=== PATIENT | female | born 1945 | race Caucasian/White ===

== ENCOUNTER 2018-12-01 13:50 | Emergency (ER) | payer MEDICARE, OTHER, SELFPAY ==
[2018-12-01 13:57] VITALS: BP 120/74; PULSE 70; RESP 16; TEMP 36.3; O2SAT 96
--- NOTE | 2018-12-01 15:15 | DI.CT.S_ITS ---
PROCEDURE: CT HEAD/BRAIN WO CON INDICATIONS: dizzy,headache. 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 TECHNIQUE: Noncontrast 4.5 mm thick angled axial sections acquired from the foramen magnum to the vertex, with coronal and sagittal reformats. For radiation dose reduction, the following was used: automated exposure control, adjustment of mA and/or kV according to patient size. COMPARISON: [facility], CT, CT ANGIO BRAIN AND NECK, 01/20/2016, 10:38. [facility], CT, CT ANGIO BRAIN, 04/26/2016, 12:41. FINDINGS: Image quality: Excellent. 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 This results in significant artifact. The visualized brain parenchyma is unremarkable. No acute stroke, hemorrhage, or mass. Sinuses and mastoids are clear. IMPRESSION: 1. Remote AV fistula endovascular embolization. 2. Negative for acute stroke, hemorrhage, or mass. Dictated by: Cuauhtemoc Denson M.D. on 12/01/2018 at 15:32 Approved by: Cuauhtemoc Denson M.D. on 12/01/2018 at 15:37
--- NOTE | 2018-12-01 15:15 | DI.RAD.S_ITS ---
PROCEDURE: XR CHEST 1V INDICATIONS: dizzy,headache TECHNIQUE: One view of the chest was acquired. COMPARISON: None. FINDINGS: Surgical changes and devices: None. Lungs and pleura: Lungs are clear. No pleural effusions or pneumothorax. Mediastinum: Mediastinal contours appear normal. Heart size is normal. Bones and chest wall: No suspicious bony lesions. Overlying soft tissues appear unremarkable. IMPRESSION: No acute process. Dictated by: Hannah Hernandez M.D. on 12/01/2018 at 15:37 Approved by: Hannah Hernandez M.D. on 12/01/2018 at 15:37
[2018-12-01 15:46] VITALS: BP 119/73; PULSE 68; RESP 24; O2SAT 99
[2018-12-01 16:14] LABS: Add Manual Diff / Slide Review NO; Basophils Absolute Auto 100 /uL (0-100); Basophils Percent Auto 1.5 % (0-2); Eosinophils Absolute Auto 200 /uL (0-450); Hematocrit 41.5 % (36-46); Hemoglobin 13.8 g/dL (12.0-16.0); Lymphocytes Absolute Auto 2500 /uL (1100-4500); Lymphocytes Percent Auto 31.4 % (25-40); Mean Corpuscular HGB Conc 33.2 % (30-36); Mean Corpuscular Hemoglobin 28.4 PG (26-34); Mean Corpuscular Volume 85.5 fL (80-100); Monocytes Absolute Auto 600 /uL (0-900); Monocytes Percent Auto 7.1 % (3-14); Neutrophils Absolute Auto 4600 /uL (1500-7000); Platelet Count 339 X10^3/uL (150-400); Red Blood Cell Count 4.86 X10^6/uL (4.0-5.2); White Blood Cell Count 7.9 X10^3/uL (4.5-11.0)
[2018-12-01] MEDS: SODIUM CHLORIDE 0.9% 1,000 ML 150 ML IV (16:18)
[2018-12-01 16:21] LABS: Prothrombin Time 11.1 SECONDS (10.1-12.7)
[2018-12-01 16:24] LABS: PTT Partial Thromboplastin Tim 33 SECONDS (26.4-36.2)
[2018-12-01 16:26] LABS: BUN Creatinine Ratio 27.1 (6-22); Blood Urea Nitrogen 19 mg/dL (7-17); Calcium 10.4 mg/dL (8.4-10.2); Carbon Dioxide 25 mmol/L (22-32); Chloride 101 mmol/L (98-107); Estimated Glomerular Filt Rate > 60.0 mL/min (>60); Glucose 90 mg/dL (80-110); HEMOLYSIS < 15 (0-50); Potassium 4.2 mmol/L (3.4-5.1); Sodium 136 mmol/L (137-145)
[2018-12-01 16:30] VITALS: BP 117/71; PULSE 68; RESP 16; O2SAT 98
--- NOTE | 2018-12-01 16:38 | ED.DIZZY ---
HPI - Dizziness <CHRISTIANO Bates - Last Filed: 12/01/18 21:24> General Chief Complaint: Dizziness Stated Complaint: dizziness, headache Time Seen by Provider: 12/01/18 16:36 Source: patient and family Mode of arrival: ambulatory Limitations: no limitations History of Present Illness HPI Narrative: The patient is a 73-year-old female nonsmoker with history of a remote AV fistula and endovascular embolization who presents with a chief complaint of 10 minutes of dizziness this morning. She states she was cooking breakfast, felt dizzy so she laid down and then felt better so she finished cooking breakfast. She denies any chest pain shortness of breath, confusion, altered mental status or current dizziness. Denies any weakness or slurred speech. Her is with her and states she is acting normal. she does complain of slight headache and has not taken anything for it. She was sent to this emergency department from urgent care. Related Data Home Medications Medication Instructions Recorded Confirmed Biotics See Rx Instructions .ROUTE .COMPLEX 12/01/18 12/01/18 clobetasol 1 applic TOPICAL DIRECTED 12/01/18 12/01/18 Allergies Allergy/AdvReac Type Severity Reaction Status Date / Time Sulfa (Sulfonamide Allergy Severe itching Verified 12/01/18 14:04 Antibiotics) Review of Systems <CHRISTIANO Bates - Last Filed: 12/01/18 21:24> Review of Systems GENERAL: Denies chills, fatigue, malaise, fever, sweats. HEENT: Denies sinus pain, ear pain, sore throat, difficulty swallowing, dizziness. RESPIRATORY: Denies dyspnea, cough, wheezing, hemoptysis, sputum. CARDIOVASCULAR: See HPI GASTROINTESTINAL: Denies nausea, vomiting, abdominal pain, diarrhea, constipation, melena. : Denies dysuria, frequency, incontinence, hematuria, urinary retention. MUSCULOSKELETAL: denies weakness, joint pain, or bony pain SKIN: Denies rash, skin lesions, or other NEUROLOGIC: See HPI PSYCHIATRIC: No concerning psychosocial issues. 12 point review of systems is negative except for those stated above PFSH <CHRISTIANO Bates - Last Filed: 12/01/18 21:24> Social History Smoking Status: Never smoker Social History Smoking Status: Never smoker Exam <MAKENZIE BatesBC - Last Filed: 12/01/18 21:24> Narrative Exam Narrative: GENERAL: Elderly female lying on stretcher HEAD: Atraumatic. Normocephalic. No temporal or scalp tenderness. EYES: Pupils equal round and reactive. Extraocular motions intact. No scleral icterus. No injection or drainage. no nystagmus. ENT: Nose without bleeding, purulent drainage or septal hematoma. Throat without erythema, tonsillar hypertrophy or exudate. Uvula midline. Airway patent. NECK: Trachea midline. No JVD or lymphadenopathy. Supple, nontender, no meningeal signs. CARDIOVASCULAR: Regular rate and rhythm without murmurs, gallops, or rubs. RESPIRATORY: Clear to auscultation. Breath sounds equal bilaterally. No wheezes, rales, or rhonchi. No cough. No increased respiratory effort. No accessory muscle use. GASTROINTESTINAL: Abdomen soft, non-tender, nondistended. No hepato-splenomegaly, or palpable masses. No guarding. EXTREMITIES: No clubbing, cyanosis, or edema. No joint tenderness, effusion, or edema noted. BACK: Nontender without deformity or crepitance. No flank tenderness. NEURO: AOx3. Stable gait. Strength is equal upper and lower extremities bilaterally. cranial nerves grossly intact. SKIN: No rash or erythema. Initial Vital Signs Initial Vital Signs: Vital Signs Temperature 97.4 F L 12/01/18 13:57 Pulse Rate 70 12/01/18 13:57 Respiratory Rate 16 12/01/18 13:57 Blood Pressure 120/74 12/01/18 13:57 Pulse Oximetry 96 12/01/18 13:57 <Alexandra More DO - Last Filed: 12/02/18 19:40> Initial Vital Signs Initial Vital Signs: Vital Signs Temperature 97.4 F L 12/01/18 13:57 Pulse Rate 70 12/01/18 13:57 Respiratory Rate 16 12/01/18 13:57 Blood Pressure 120/74 12/01/18 13:57 Pulse Oximetry 96 12/01/18 13:57 Scores <MAKENZIE BatesBC - Last Filed: 12/01/18 21:24> ABCD2 Age >= 60 years: yes Initial BP. Either SBP >= 140 or DBP >= 90.: no Clinical features of the TIA: other symptoms Duration of symptoms: 10-59 minutes History of diabetes: no ABCD2 Score: 2 Course <CHRISTIANO Bates - Last Filed: 12/01/18 21:24> Orders Ordered: Discontinued Medications Sodium Chloride (Normal Saline 0.9%) 1,000 mls @ 150 mls/hr IV CONT ALEXANDRA Last Infusion: 12/01/18 19:55 Dose: 0 mls/hr Admin: 12/01/18 16:18 Dose: 150 mls/hr Vital Signs - 8 hr 12/01/18 13:57 12/01/18 15:46 12/01/18 16:30 Temperature 97.4 F L Pulse Rate 70 68 68 Respiratory Rate 16 24 16 Blood Pressure 120/74 Blood Pressure [Left Arm] 119/73 117/71 Pulse Oximetry 96 99 98 12/01/18 17:30 12/01/18 19:30 12/01/18 19:56 Temperature Pulse Rate 60 69 70 Respiratory Rate 17 23 21 Blood Pressure 107/61 Blood Pressure [Left Arm] 108/65 108/66 Pulse Oximetry 96 97 99 <Alexandra More DO - Last Filed: 12/02/18 19:40> Orders Ordered: Discontinued Medications Sodium Chloride (Normal Saline 0.9%) 1,000 mls @ 150 mls/hr IV CONT ALEXANDRA Last Infusion: 12/01/18 19:55 Dose: 0 mls/hr Admin: 12/01/18 16:18 Dose: 150 mls/hr Vital Signs - 8 hr 12/01/18 13:57 12/01/18 15:46 12/01/18 16:30 Temperature 97.4 F L Pulse Rate 70 68 68 Respiratory Rate 16 24 16 Blood Pressure 120/74 Blood Pressure [Left Arm] 119/73 117/71 Pulse Oximetry 96 99 98 12/01/18 17:30 12/01/18 19:30 12/01/18 19:56 Temperature Pulse Rate 60 69 70 Respiratory Rate 17 23 21 Blood Pressure 107/61 Blood Pressure [Left Arm] 108/65 108/66 Pulse Oximetry 96 97 99 MDM - Dizziness <CHRISTIANO Bates - Last Filed: 12/01/18 21:24> Lab Data Result diagrams: 12/01/18 16:01 12/01/18 16:01 Lab Results 12/01/18 12/01/18 12/01/18 Range/Units 16:01 16:01 16:01 WBC 7.9 (4.5-11.0) X10^3/uL RBC 4.86 (4.0-5.2) X10^6/uL Hgb 13.8 (12.0-16.0) g/dL Hct 41.5 (36-46) % MCV 85.5 (80-100) fL MCH 28.4 (26-34) PG MCHC 33.2 (30-36) % RDW 13.0 (11.6-14.8) % Plt Count 339 (150-400) X10^3/uL Neut % (Auto) 58.0 (50-75) % Lymph % (Auto) 31.4 (25-40) % [place] % (Auto) 7.1 (3-14) % Eos % (Auto) 2.0 (2-4) % Baso % (Auto) 1.5 (0-2) % Neut # (Auto) 4600 (4041-0992) /uL Lymph # (Auto) 2500 (4591-7439) /uL [place] # (Auto) 600 (0-900) /uL Eos # (Auto) 200 (0-450) /uL Baso # (Auto) 100 (0-100) /uL PT 11.1 (10.1-12.7) SECONDS INR 1.0 (0.9-1.3) APTT 33 (26.4-36.2) SECONDS Sodium 136 L (137-145) mmol/L Potassium 4.2 (3.4-5.1) mmol/L Chloride 101 (98-107) mmol/L Carbon Dioxide 25 (22-32) mmol/L BUN 19 H (7-17) mg/dL Creatinine 0.70 (0.52-1.04) mg/dL Estimated GFR > 60.0 (>60) mL/min BUN/Creatinine Ratio 27.1 H (6-22) Glucose 90 (80-110) mg/dL Calcium 10.4 H (8.4-10.2) mg/dL Total Creatine Kinase (30-135) U/L CK-MB (CK-2) CK-MB (CK-2) Rel Index Troponin I (0.01-0.034) ng/mL 12/01/18 Range/Units 16:01 WBC (4.5-11.0) X10^3/uL RBC (4.0-5.2) X10^6/uL Hgb (12.0-16.0) g/dL Hct (36-46) % MCV (80-100) fL MCH (26-34) PG MCHC (30-36) % RDW (11.6-14.8) % Plt Count (150-400) X10^3/uL Neut % (Auto) (50-75) % Lymph % (Auto) (25-40) % [place] % (Auto) (3-14) % Eos % (Auto) (2-4) % Baso % (Auto) (0-2) % Neut # (Auto) (2135-1518) /uL Lymph # (Auto) (4310-0216) /uL [place] # (Auto) (0-900) /uL Eos # (Auto) (0-450) /uL Baso # (Auto) (0-100) /uL PT (10.1-12.7) SECONDS INR (0.9-1.3) APTT (26.4-36.2) SECONDS Sodium (137-145) mmol/L Potassium (3.4-5.1) mmol/L Chloride (98-107) mmol/L Carbon Dioxide (22-32) mmol/L BUN (7-17) mg/dL Creatinine (0.52-1.04) mg/dL Estimated GFR (>60) mL/min BUN/Creatinine Ratio (6-22) Glucose (80-110) mg/dL Calcium (8.4-10.2) mg/dL Total Creatine Kinase 37 (30-135) U/L CK-MB (CK-2) TNP CK-MB (CK-2) Rel Index TNP Troponin I < 0.012 (0.01-0.034) ng/mL Point of Care Testing Glucose POC 88 Urine Dip Bedside Urine Glucose Negative Bedside Urine Bilirubin - Negative Bedside Urine Ketone - Negative Urine Specific [place] 1.015 Bedside Urine Occult Blood - Negative Bedside Urine pH 6.0 Bedside Urine Protein - Negative Bedside Urine Urobilinogen - Negative Bedside Urine Nitrite - Negative Bedside Urine Leukocytes - Negative Esterase Imaging Data CT scan - head: Radiologist's impression: [place],Jennie 73 F [address] [address] [address] Scan Report Signed Patient: Marybel Gallardo#: [id number] : 5Acct:[id number] Age/Sex: 73 / FDate of Service: 12/01/18 Loc: ED Accession Number: [id number] Procedure: CT head/brain wo con Ordering Provider: Alexandra More D.O. PROCEDURE: CT HEAD/BRAIN WO CON INDICATIONS: dizzy,headache. 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 TECHNIQUE: Noncontrast 4.5 mm thick angled axial sections acquired from the foramen magnum to the vertex, with coronal and sagittal reformats. For radiation dose reduction, the following was used: automated exposure control, adjustment of mA and/or kV according to patient size. COMPARISON: [facility], CT, CT ANGIO BRAIN AND NECK, 01/20/2016, 10:38. [facility], CT, CT ANGIO BRAIN, 04/26/2016, 12:41. FINDINGS: Image quality: Excellent. 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 This results in significant artifact. The visualized brain parenchyma is unremarkable. No acute stroke, hemorrhage, or mass. Sinuses and mastoids are clear. IMPRESSION: 1. Remote AV fistula endovascular embolization. 2. Negative for acute stroke, hemorrhage, or mass. Dictated by: Cuauhtemoc Denson M.D. on 12/01/2018 at 15:32 Approved by: Cuauhtemoc Denson M.D. on 12/01/2018 at 15:37 Chest x-ray: Radiologist's impression: Jennie Gallardo 73 F [address] [address] XRay Report Signed Patient: Marybel Gallardo#: [id number] : 5Acct:[id number] Age/Sex: 73 / FDate of Service: 12/01/18 Loc: ED Accession Number: [id number] Procedure: XR chest 1V Ordering Provider: Alexandra More D.O. PROCEDURE: XR CHEST 1V INDICATIONS: dizzy,headache TECHNIQUE: One view of the chest was acquired. COMPARISON: None. FINDINGS: Surgical changes and devices: None. Lungs and pleura: Lungs are clear. No pleural effusions or pneumothorax. Mediastinum: Mediastinal contours appear normal. Heart size is normal. Bones and chest wall: No suspicious bony lesions. Overlying soft tissues appear unremarkable. IMPRESSION: No acute process. Dictated by: Hannah Hernandez M.D. on 12/01/2018 at 15:37 Approved by: Hannah Hernandez M.D. on 12/01/2018 at 15:37 CTA head/neck: Radiologist's impression: [place] [address] CT Scan Report Signed Patient: Marybel Gallardo#: [id number] : 5Acct:[id number] Age/Sex: 73 / FDate of Service: 12/01/18 Loc: ED Accession Number: [id number] Procedure: CT angio head and neck Ordering Provider: Alexandra Beck BATTING MACHINE OPERATOR INSULATION-BC PROCEDURE: CT ANGIO HEAD AND NECK INDICATIONS: dizziness, hx av fistula embolization TECHNIQUE: Pre-contrast 4.5 mm thick sections acquired from the foramen magnum to the vertex. After the administration of intravenous contrast, 1 mm thick sections acquired from the aortic arch through the [place] of [place]. Post-contrast 4.5 mm thick sections then re-acquired from the foramen magnum to the vertex. 3-dimensional vivrpfq-gvkotezya-fygpupuvdk (MIP) and/or volume rendering reformats were acquired of the central intracranial vasculature and neck separately. COMPARISON: [facility], CT, CT HEAD/BRAIN WO CON, 12/01/2018, 15:17. FINDINGS: Image quality: Excellent. BRAIN: CSF spaces: Ventricles are normal in size and shape. Basal cisterns are patent. No extra-axial fluid collections. Brain: No midline shift. No intracranial bleeds or masses. Evans-white matter interface appears intact. Again noted is intravascular material in the right cerebellar region from remote AV fistula embolization. No acute stroke. Skull and face: Calvarium and facial bones appear intact, without suspicious lesions. Orbits appear normal. Sinuses: Sinuses and mastoids are clear. HEAD CT ANGIOGRAPHY: No stenosis, aneurysm, occlusion, or filling defect. NECK CT ANGIOGRAPHY: Classic 3 vessel arch anatomy. Mild atherosclerotic plaque in the aorta and in the left subclavian. No great vessel origin stenosis. Internal carotids are widely patent. Soft tissues: Visualized neck soft tissues demonstrate no suspicious abnormalities. Bones: No suspicious bony lesions. Visualized cervical spine appears normally aligned. IMPRESSION: 1. Evidence of remote right cerebellar region fistula embolization. 2. Otherwise unremarkable CTA head and neck. 3. No evidence of acute stroke, hemorrhage, or mass. 4. Otherwise unremarkable neck CT with contrast Any quantitative measurements of stenosis were performed using NASCET criteria. Dictated by: Cuauhtemoc Denson M.D. on 12/01/2018 at 18:40 Approved by: Cuauhtemoc Denson M.D. on 12/01/2018 at 18:49 ECG Data Interpretation: Sinus rhythm. Ventricular rate 63. No ectopy noted. no ST elevation or depression. viewed by Dr More at 1409 MDM Narrative Medical decision making narrative: The patient is a 73-year-old female who presents with transient dizziness earlier today. She had a normal troponin, is not anemic at a normal x-ray. She had a normal head CT and a normal chest x-ray. Given her history I did obtain a CTA, which came back normal. her ABCD2 score is low risk. I did discuss admitting her for further evaluation but the patient declined at this point time. She has been hemodynamically stable without symptoms throughout her stay in the emergency department. I did discuss at length return precautions including shortness of breath, chest pain, concern of stroke or heart attack. Patient and again declined admission. No questions or concerns upon discharge <Alexandra More, - Last Filed: 12/02/18 19:40> Lab Data Lab Results 12/01/18 12/01/18 12/01/18 Range/Units 16:01 16:01 16:01 WBC 7.9 (4.5-11.0) X10^3/uL RBC 4.86 (4.0-5.2) X10^6/uL Hgb 13.8 (12.0-16.0) g/dL Hct 41.5 (36-46) % MCV 85.5 (80-100) fL MCH 28.4 (26-34) PG MCHC 33.2 (30-36) % RDW 13.0 (11.6-14.8) % Plt Count 339 (150-400) X10^3/uL Neut % (Auto) 58.0 (50-75) % Lymph % (Auto) 31.4 (25-40) % [place] % (Auto) 7.1 (3-14) % Eos % (Auto) 2.0 (2-4) % Baso % (Auto) 1.5 (0-2) % Neut # (Auto) 4600 (0824-2737) /uL Lymph # (Auto) 2500 (2006-7835) /uL [place] # (Auto) 600 (0-900) /uL Eos # (Auto) 200 (0-450) /uL Baso # (Auto) 100 (0-100) /uL PT 11.1 (10.1-12.7) SECONDS INR 1.0 (0.9-1.3) APTT 33 (26.4-36.2) SECONDS Sodium 136 L (137-145) mmol/L Potassium 4.2 (3.4-5.1) mmol/L Chloride 101 (98-107) mmol/L Carbon Dioxide 25 (22-32) mmol/L BUN 19 H (7-17) mg/dL Creatinine 0.70 (0.52-1.04) mg/dL Estimated GFR > 60.0 (>60) mL/min BUN/Creatinine Ratio 27.1 H (6-22) Glucose 90 (80-110) mg/dL Calcium 10.4 H (8.4-10.2) mg/dL Total Creatine Kinase (30-135) U/L CK-MB (CK-2) CK-MB (CK-2) Rel Index Troponin I (0.01-0.034) ng/mL 12/01/18 Range/Units 16:01 WBC (4.5-11.0) X10^3/uL RBC (4.0-5.2) X10^6/uL Hgb (12.0-16.0) g/dL Hct (36-46) % MCV (80-100) fL MCH (26-34) PG MCHC (30-36) % RDW (11.6-14.8) % Plt Count (150-400) X10^3/uL Neut % (Auto) (50-75) % Lymph % (Auto) (25-40) % [place] % (Auto) (3-14) % Eos % (Auto) (2-4) % Baso % (Auto) (0-2) % Neut # (Auto) (3311-9162) /uL Lymph # (Auto) (4744-3009) /uL [place] # (Auto) (0-900) /uL Eos # (Auto) (0-450) /uL Baso # (Auto) (0-100) /uL PT (10.1-12.7) SECONDS INR (0.9-1.3) APTT (26.4-36.2) SECONDS Sodium (137-145) mmol/L Potassium (3.4-5.1) mmol/L Chloride (98-107) mmol/L Carbon Dioxide (22-32) mmol/L BUN (7-17) mg/dL Creatinine (0.52-1.04) mg/dL Estimated GFR (>60) mL/min BUN/Creatinine Ratio (6-22) Glucose (80-110) mg/dL Calcium (8.4-10.2) mg/dL Total Creatine Kinase 37 (30-135) U/L CK-MB (CK-2) TNP CK-MB (CK-2) Rel Index TNP Troponin I < 0.012 (0.01-0.034) ng/mL Point of Care Testing Glucose POC 88 Urine Dip Bedside Urine Glucose Negative Bedside Urine Bilirubin - Negative Bedside Urine Ketone - Negative Urine Specific [place] 1.015 Bedside Urine Occult Blood - Negative Bedside Urine pH 6.0 Bedside Urine Protein - Negative Bedside Urine Urobilinogen - Negative Bedside Urine Nitrite - Negative Bedside Urine Leukocytes - Negative Esterase Discharge Plan Departure Patient Disposition: Home Clinical Impression: Dizziness Discharge Date/Time: 12/01/18 19:55 Interventions: ED Discharge Assessment Last Done: 12/01/18 19:56 Instructions: DI for Dizziness-Nonvertigo Activity Restrictions/Additional Instructions: Your workup came back normal today. Please follow up with primary care provider soon as possible. Please come back to emergency department for any acute concerns such as chest pain, shortness of breath or concern of stroke or TIA. Prescriptions: No Action clobetasol 1 applic topical DIRECTED RF: 0 Biotics See Rx Instructions .ROUTE .COMPLEX RF: 0 Referrals: Lyssa Bejarano DO [Non-Staff] - <Alexandra More DO - Last Filed: 12/02/18 19:40> Cosign ED Attending Cosignature Attestation: I was immediately available in the department for consultation, case was discussed with patient's history of remove fistula embolization, elected to do CTA which was otherwise unremarkable. This documentation has been reviewed and I agree with assessment and plan. Supervised by Alexandra More DO
[2018-12-01 17:17] LABS: Creatine Kinase 37 U/L (30-135)
[2018-12-01 17:30] VITALS: BP 108/65; PULSE 60; RESP 17; O2SAT 96
[2018-12-01 17:30] LABS: Troponin I < 0.012 ng/mL (0.01-0.034)
--- NOTE | 2018-12-01 17:59 | DI.CT.S_ITS ---
PROCEDURE: CT ANGIO HEAD AND NECK INDICATIONS: dizziness, hx av fistula embolization TECHNIQUE: Pre-contrast 4.5 mm thick sections acquired from the foramen magnum to the vertex. After the administration of intravenous contrast, 1 mm thick sections acquired from the aortic arch through the [place] of [place]. Post-contrast 4.5 mm thick sections then re-acquired from the foramen magnum to the vertex. 3-dimensional zzhnspa-bdjlhnwba-rdxyxxreiw (MIP) and/or volume rendering reformats were acquired of the central intracranial vasculature and neck separately. COMPARISON: [facility], CT, CT HEAD/BRAIN WO CON, 12/01/2018, 15:17. FINDINGS: Image quality: Excellent. BRAIN: CSF spaces: Ventricles are normal in size and shape. Basal cisterns are patent. No extra-axial fluid collections. Brain: No midline shift. No intracranial bleeds or masses. Evans-white matter interface appears intact. Again noted is intravascular material in the right cerebellar region from remote AV fistula embolization. No acute stroke. Skull and face: Calvarium and facial bones appear intact, without suspicious lesions. Orbits appear normal. Sinuses: Sinuses and mastoids are clear. HEAD CT ANGIOGRAPHY: No stenosis, aneurysm, occlusion, or filling defect. NECK CT ANGIOGRAPHY: Classic 3 vessel arch anatomy. Mild atherosclerotic plaque in the aorta and in the left subclavian. No great vessel origin stenosis. Internal carotids are widely patent. Soft tissues: Visualized neck soft tissues demonstrate no suspicious abnormalities. Bones: No suspicious bony lesions. Visualized cervical spine appears normally aligned. IMPRESSION: 1. Evidence of remote right cerebellar region fistula embolization. 2. Otherwise unremarkable CTA head and neck. 3. No evidence of acute stroke, hemorrhage, or mass. 4. Otherwise unremarkable neck CT with contrast Any quantitative measurements of stenosis were performed using NASCET criteria. Dictated by: Cuauhtemoc Denson M.D. on 12/01/2018 at 18:40 Approved by: Cuauhtemoc Denson M.D. on 12/01/2018 at 18:49
[2018-12-01 19:30] VITALS: BP 108/66; PULSE 69; RESP 23; O2SAT 97
--- NOTE | 2018-12-01 19:35 | ED_ITS ---
HPI - Dizziness <CHRISTIANO Bates - Last Filed: 12/01/18 21:24> General Chief Complaint: Dizziness Stated Complaint: dizziness, headache Time Seen by Provider: 12/01/18 16:36 Source: patient and family Mode of arrival: ambulatory Limitations: no limitations History of Present Illness HPI Narrative: The patient is a 73-year-old female nonsmoker with history of a remote AV fistula and endovascular embolization who presents with a chief complaint of 10 minutes of dizziness this morning. She states she was cooking breakfast, felt dizzy so she laid down and then felt better so she finished cooking breakfast. She denies any chest pain shortness of breath, confusion, altered mental status or current dizziness. Denies any weakness or slurred speech. Her is with her and states she is acting normal. she does complain of slight headache and has not taken anything for it. She was sent to this emergency department from urgent care. Related Data Home Medications Medication Instructions Recorded Confirmed Biotics See Rx Instructions .ROUTE .COMPLEX 12/01/18 12/01/18 clobetasol 1 applic TOPICAL DIRECTED 12/01/18 12/01/18 Allergies Allergy/AdvReac Type Severity Reaction Status Date / Time Sulfa (Sulfonamide Allergy Severe itching Verified 12/01/18 14:04 Antibiotics) Review of Systems <CHRISTIANO Bates - Last Filed: 12/01/18 21:24> Review of Systems GENERAL: Denies chills, fatigue, malaise, fever, sweats. HEENT: Denies sinus pain, ear pain, sore throat, difficulty swallowing, dizziness. RESPIRATORY: Denies dyspnea, cough, wheezing, hemoptysis, sputum. CARDIOVASCULAR: See HPI GASTROINTESTINAL: Denies nausea, vomiting, abdominal pain, diarrhea, const ipation, melena. : Denies dysuria, frequency, incontinence, hematuria, urinary retention. MUSCULOSKELETAL: denies weakness, joint pain, or bony pain SKIN: Denies rash, skin lesions, or other NEUROLOGIC: See HPI PSYCHIATRIC: No concerning psychosocial issues. 12 point review of systems is negative except for those stated above PFSH <CHRISTIANO Bates - Last Filed: 12/01/18 21:24> Social History Smoking Status: Never smoker Social History Smoking Status: Never smoker Exam <CHRISTIANO Baets - Last Filed: 12/01/18 21:24> Narrative Exam Narrative: GENERAL: Elderly female lying on stretcher HEAD: Atraumatic. Normocephalic. No temporal or scalp tenderness. EYES: Pupils equal round and reactive. Extraocular motions intact. No scleral icterus. No injection or drainage. no nystagmus. ENT: Nose without bleeding, purulent drainage or septal hematoma. Throat without erythema, tonsillar hypertrophy or exudate. Uvula midline. Airway patent. NECK: Trachea midline. No JVD or lymphadenopathy. Supple, nontender, no mening eal signs. CARDIOVASCULAR: Regular rate and rhythm without murmurs, gallops, or rubs. RESPIRATORY: Clear to auscultation. Breath sounds equal bilaterally. No wheezes, rales, or rhonchi. No cough. No increased respiratory effort. No accessory muscle use. GASTROINTESTINAL: Abdomen soft, non-tender, nondistended. No hepato- splenomegaly, or palpable masses. No guarding. EXTREMITIES: No clubbing, cyanosis, or edema. No joint tenderness, effusion, or edema noted. BACK: Nontender without deformity or crepitance. No flank tenderness. NEURO: AOx3. Stable gait. Strength is equal upper and lower extremities bilaterally. cranial nerves grossly intact. SKIN: No rash or erythema. Initial Vital Signs Initial Vital Signs: Vital Signs Temperature 97.4 F L 12/01/18 13:57 Pulse Rate 70 12/01/18 13:57 Respiratory Rate 16 12/01/18 13:57 Blood Pressure 120/74 12/01/18 13:57 Pulse Oximetry 96 12/01/18 13:57 <Alexandra More DO - Last Filed: 12/02/18 19:40> Initial Vital Signs Initial Vital Signs: Vital Signs Temperature 97.4 F L 12/01/18 13:57 Pulse Rate 70 12/01/18 13:57 Respiratory Rate 16 12/01/18 13:57 Blood Pressure 120/74 12/01/18 13:57 Pulse Oximetry 96 12/01/18 13:57 Scores <CHRISTIANO Bates - Last Filed: 12/01/18 21:24> ABCD2 Age >= 60 years: yes Initial BP. Either SBP >= 140 or DBP >= 90.: no Clinical features of the TIA: other symptoms Duration of symptoms: 10-59 minutes History of diabetes: no ABCD2 Score: 2 Course <CHRISTIANO Bates - Last Filed: 12/01/18 21:24> Orders Ordered: Discontinued Medications Sodium Chloride (Normal Saline 0.9%) 1,000 mls @ 150 mls/hr IV CONT ALEXANDRA Last Infusion: 12/01/18 19:55 Dose: 0 mls/hr Admin: 12/01/18 16:18 Dose: 150 mls/hr Vital Signs - 8 hr 12/01/18 13:57 12/01/18 15:46 12/01/18 16:30 Temperature 97.4 F L Pulse Rate 70 68 68 Respiratory Rate 16 24 16 Blood Pressure 120/74 Blood Pressure [Left Arm] 119/73 117/71 Pulse Oximetry 96 99 98 12/01/18 17:30 12/01/18 19:30 12/01/18 19:56 Temperature Pulse Rate 60 69 70 Respiratory Rate 17 23 21 Blood Pressure 107/61 Blood Pressure [Left Arm] 108/65 108/66 Pulse Oximetry 96 97 99 <Alexandra More DO - Last Filed: 12/02/18 19:40> Orders Ordered: Discontinued Medications Sodium Chloride (Normal Saline 0.9%) 1,000 mls @ 150 mls/hr IV CONT ALEXANDRA Last Infusion: 12/01/18 19:55 Dose: 0 mls/hr Admin: 12/01/18 16:18 Dose: 150 mls/hr Vital Signs - 8 hr 12/01/18 13:57 12/01/18 15:46 12/01/18 16:30 Temperature 97.4 F L Pulse Rate 70 68 68 Respiratory Rate 16 24 16 Blood Pressure 120/74 Blood Pressure [Left Arm] 119/73 117/71 Pulse Oximetry 96 99 98 12/01/18 17:30 12/01/18 19:30 12/01/18 19:56 Temperature Pulse Rate 60 69 70 Respiratory Rate 17 23 21 Blood Pressure 107/61 Blood Pressure [Left Arm] 108/65 108/66 Pulse Oximetry 96 97 99 MDM - Dizziness <CHRISTIANO Bates - Last Filed: 12/01/18 21:24> Lab Data Result diagrams: 12/01/18 16:01 12/01/18 16:01 Lab Results 12/01/18 12/01/18 12/01/18 Range/Units 16:01 16:01 16:01 WBC 7.9 (4.5-11.0) X10^3/uL RBC 4.86 (4.0-5.2) X10^6/uL Hgb 13.8 (12.0-16.0) g/dL Hct 41.5 (36-46) % MCV 85.5 (80-100) fL MCH 28.4 (26-34) PG MCHC 33.2 (30-36) % RDW 13.0 (11.6-14.8) % Plt Count 339 (150-400) X10^3/uL Neut % (Auto) 58.0 (50-75) % Lymph % (Auto) 31.4 (25-40) % [place] % (Auto) 7.1 (3-14) % Eos % (Auto) 2.0 (2-4) % Baso % (Auto) 1.5 (0-2) % Neut # (Auto) 4600 (3232-4702) /uL Lymph # (Auto) 2500 (5538-6307) /uL [place] # (Auto) 600 (0-900) /uL Eos # (Auto) 200 (0-450) /uL Baso # (Auto) 100 (0-100) /uL PT 11.1 (10.1-12.7) SECONDS INR 1.0 (0.9-1.3) APTT 33 (26.4-36.2) SECONDS Sodium 136 L (137-145) mmol/L Potassium 4.2 (3.4-5.1) mmol/L Chloride 101 (98-107) mmol/L Carbon Dioxide 25 (22-32) mmol/L BUN 19 H (7-17) mg/dL Creatinine 0.70 (0.52-1.04) mg/dL Estimated GFR > 60.0 (>60) mL/min BUN/Creatinine Ratio 27.1 H (6-22) Glucose 90 (80-110) mg/dL Calcium 10.4 H (8.4-10.2) mg/dL Total Creatine Kinase (30-135) U/L CK-MB (CK-2) CK-MB (CK-2) Rel Index Troponin I (0.01-0.034) ng/mL 12/01/18 Range/Units 16:01 WBC (4.5-11.0) X10^3/uL RBC (4.0-5.2) X10^6/uL Hgb (12.0-16.0) g/dL Hct (36-46) % MCV (80-100) fL MCH (26-34) PG MCHC (30-36) % RDW (11.6-14.8) % Plt Count (150-400) X10^3/uL Neut % (Auto) (50-75) % Lymph % (Auto) (25-40) % Aurora % (Auto) (3-14) % Eos % (Auto) (2-4) % Baso % (Auto) (0-2) % Neut # (Auto) (4874-8924) /uL Lymph # (Auto) (9955-4574) /uL Aurora # (Auto) (0-900) /uL Eos # (Auto) (0-450) /uL Baso # (Auto) (0-100) /uL PT (10.1-12.7) SECONDS INR (0.9-1.3) APTT (26.4-36.2) SECONDS Sodium (137-145) mmol/L Potassium (3.4-5.1) mmol/L Chloride (98-107) mmol/L Carbon Dioxide (22-32) mmol/L BUN (7-17) mg/dL Creatinine (0.52-1.04) mg/dL Estimated GFR (>60) mL/min BUN/Creatinine Ratio (6-22) Glucose (80-110) mg/dL Calcium (8.4-10.2) mg/dL Total Creatine Kinase 37 (30-135) U/L CK-MB (CK-2) TNP CK-MB (CK-2) Rel Index TNP Troponin I < 0.012 (0.01-0.034) ng/mL Point of Care Testing Glucose POC 88 Urine Dip Bedside Urine Glucose Negative Bedside Urine Bilirubin - Negative Bedside Urine Ketone - Negative Urine Specific [place] 1.015 Bedside Urine Occult Blood - Negative Bedside Urine pH 6.0 Bedside Urine Protein - Negative Bedside Urine Urobilinogen - Negative Bedside Urine Nitrite - Negative Bedside Urine Leukocytes - Negative Esterase Imaging Data CT scan - head: Radiologist's impression: Jennie Gallardo 73 F [address] [address] [address] Scan Report Signed Patient: Marybel Gallardo#: [id number] : 5Acct:[id number] Age/Sex: 73 / FDate of Service: 12/01/18 Loc: ED Accession Number: [id number] Procedure: CT head/brain wo con Ordering Provider: Alexandra More D.O. PROCEDURE: CT HEAD/BRAIN WO CON INDICATIONS: dizzy,headache. 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 TECHNIQUE: Noncontrast 4.5 mm thick angled axial sections acquired from the foramen magnum to the vertex, with coronal and sagittal reformats. For radiation dose reduction, the following was used: automated exposure control, adjustment of mA and/or kV according to patient size. COMPARISON: [facility], CT, CT ANGIO BRAIN AND NECK, 01/20/2016, 10:38. [facility], CT, CT ANGIO BRAIN, 04/26/2016, 12:41. FINDINGS: Image quality: Excellent. 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 This results in significant artifact. The visualized brain parenchyma is unremarkable. No acute stroke, hemorrhage, or mass. Sinuses and mastoids are clear. IMPRESSION: 1. Remote AV fistula endovascular embolization. 2. Negative for acute stroke, hemorrhage, or mass. Dictated by: Cuauhtemoc Denson M.D. on 12/01/2018 at 15:32 Approved by: Cuauhtemoc Denson M.D. on 12/01/2018 at 15:37 Chest x-ray: Radiologist's impression: Jennie Gallardo 73 F [address] [address] XRay Report Signed Patient: Marybel Gallardo#: [id number] : 5Acct:[id number] Age/Sex: 73 / FDate of Service: 12/01/18 Loc: ED Accession Number: [id number] Procedure: XR chest 1V Ordering Provider: Alexandra More D.O. PROCEDURE: XR CHEST 1V INDICATIONS: dizzy,headache TECHNIQUE: One view of the chest was acquired. COMPARISON: None. FINDINGS: Surgical changes and devices: None. Lungs and pleura: Lungs are clear. No pleural effusions or pneumothorax. Mediastinum: Mediastinal contours appear normal. Heart size is normal. Bones and chest wall: No suspicious bony lesions. Overlying soft tissues appear unremarkable. IMPRESSION: No acute process. Dictated by: Hannah Hernandez M.D. on 12/01/2018 at 15:37 Approved by: Hannah Hernandez M.D. on 12/01/2018 at 15:37 CTA head/neck: Radiologist's impression: [place] [address] CT Scan Report Signed Patient: Marybel Gallardo#: [id number] : 5Acct:[id number] Age/Sex: 73 / FDate of Service: 12/01/18 Loc: ED Accession Number: [id number] Procedure: CT angio head and neck Ordering Provider: Alexandra Beck TONG SETTER-BC PROCEDURE: CT ANGIO HEAD AND NECK INDICATIONS: dizziness, hx av fistula embolization TECHNIQUE: Pre-contrast 4.5 mm thick sections acquired from the foramen magnum to the vertex. After the administration of intravenous contrast, 1 mm thick sections acquired from the aortic arch through the [place] of [place]. Post-contrast 4.5 mm thick sections then re- acquired from the foramen magnum to the vertex. 3-dimensional m rhohaz-domyrtgxp-rrvtcwhtzr (MIP) and/or volume rendering reformats were acquired of the central intracranial vasculature and neck separately. COMPARISON: [facility], CT, CT HEAD/BRAIN WO CON, 12/01/2018, 15:17. FINDINGS: Image quality: Excellent. BRAIN: CSF spaces: Ventricles are normal in size and shape. Basal cisterns are patent. No extra-axial fluid collections. Brain: No midline shift. No intracranial bleeds or masses. Evans-white matter interface appears intact. Again noted is intravascular material in the right cerebellar region from remote AV fistula embolization. No acute stroke. Skull and face: Calvarium and facial bones appear intact, without suspicious lesions. Orbits appear normal. Sinuses: Sinuses and mastoids are clear. HEAD CT ANGIOGRAPHY: No stenosis, aneurysm, occlusion, or filling defect. NECK CT ANGIOGRAPHY: Classic 3 vessel arch anatomy. Mild atherosclerotic plaque in the aorta and in the left subclavian. No great vessel origin stenosis. Internal carotids are widely patent. Soft tissues: Visualized neck soft tissues demonstrate no suspicious abnormalities. Bones: No suspicious bony lesions. Visualized cervical spine appears normally aligned. IMPRESSION: 1. Evidence of remote right cerebellar region fistula embolization. 2. Otherwise unremarkable CTA head and neck. 3. No evidence of acute stroke, hemorrhage, or mass. 4. Otherwise unremarkable neck CT with contrast Any quantitative measurements of stenosis were performed using NASCET criteria. Dictated by: Cuauhtemoc Denson M.D. on 12/01/2018 at 18:40 Approved by: Cuauhtemoc Denson M.D. on 12/01/2018 at 18:49 ECG Data Interpretation: Sinus rhythm. Ventricular rate 63. No ectopy noted. no ST elevation or depression. viewed by Dr More at 1409 MDM Narrative Medical decision making narrative: The patient is a 73-year-old female who presents with transient dizziness earlier today. She had a normal troponin, is not anemic at a normal x-ray. She had a normal head CT and a normal chest x- ray. Given her history I did obtain a CTA, which came back normal. her ABCD2 score is low risk. I did discuss admitting her for further evaluation but the patient declined at this point time. She has been hemodynamically stable without symptoms throughout her stay in the emergency department. I did discuss at length return precautions including shortness of breath, chest pain, concern of stroke or heart attack. Patient and again declined admission. No questions or concerns upon discharge <Alexandra More, DO - Last Filed: 12/02/18 19:40> Lab Data Lab Results 12/01/18 12/01/18 12/01/18 Range/Units 16:01 16:01 16:01 WBC 7.9 (4.5-11.0) X10^3/uL RBC 4.86 (4.0-5.2) X10^6/uL Hgb 13.8 (12.0-16.0) g/dL Hct 41.5 (36-46) % MCV 85.5 (80-100) fL MCH 28.4 (26-34) PG MCHC 33.2 (30-36) % RDW 13.0 (11.6-14.8) % Plt Count 339 (150-400) X10^3/uL Neut % (Auto) 58.0 (50-75) % Lymph % (Auto) 31.4 (25-40) % Aurora % (Auto) 7.1 (3-14) % Eos % (Auto) 2.0 (2-4) % Baso % (Auto) 1.5 (0-2) % Neut # (Auto) 4600 (0161-9710) /uL Lymph # (Auto) 2500 (9525-6824) /uL Aurora # (Auto) 600 (0-900) /uL Eos # (Auto) 200 (0-450) /uL Baso # (Auto) 100 (0-100) /uL PT 11.1 (10.1-12.7) SECONDS INR 1.0 (0.9-1.3) APTT 33 (26.4-36.2) SECONDS Sodium 136 L (137-145) mmol/L Potassium 4.2 (3.4-5.1) mmol/L Chloride 101 (98-107) mmol/L Carbon Dioxide 25 (22-32) mmol/L BUN 19 H (7-17) mg/dL Creatinine 0.70 (0.52-1.04) mg/dL Estimated GFR > 60.0 (>60) mL/min BUN/Creatinine Ratio 27.1 H (6-22) Glucose 90 (80-110) mg/dL Calcium 10.4 H (8.4-10.2) mg/dL Total Creatine Kinase (30-135) U/L CK-MB (CK-2) CK-MB (CK-2) Rel Index Troponin I (0.01-0.034) ng/mL 12/01/18 Range/Units 16:01 WBC (4.5-11.0) X10^3/uL RBC (4.0-5.2) X10^6/uL Hgb (12.0-16.0) g/dL Hct (36-46) % MCV (80-100) fL MCH (26-34) PG MCHC (30-36) % RDW (11.6-14.8) % Plt Count (150-400) X10^3/uL Neut % (Auto) (50-75) % Lymph % (Auto) (25-40) % Aurora % (Auto) (3-14) % Eos % (Auto) (2-4) % Baso % (Auto) (0-2) % Neut # (Auto) (3118-3037) /uL Lymph # (Auto) (2373-5403) /uL Aurora # (Auto) (0-900) /uL Eos # (Auto) (0-450) /uL Baso # (Auto) (0-100) /uL PT (10.1-12.7) SECONDS INR (0.9-1.3) APTT (26.4-36.2) SECONDS Sodium (137-145) mmol/L Potassium (3.4-5.1) mmol/L Chloride (98-107) mmol/L Carbon Dioxide (22-32) mmol/L BUN (7-17) mg/dL Creatinine (0.52-1.04) mg/dL Estimated GFR (>60) mL/min BUN/Creatinine Ratio (6-22) Glucose (80-110) mg/dL Calcium (8.4-10.2) mg/dL Total Creatine Kinase 37 (30-135) U/L CK-MB (CK-2) TNP CK-MB (CK-2) Rel Index TNP Troponin I < 0.012 (0.01-0.034) ng/mL Point of Care Testing Glucose POC 88 Urine Dip Bedside Urine Glucose Negative Bedside Urine Bilirubin - Negative Bedside Urine Ketone - Negative Urine Specific [place] 1.015 Bedside Urine Occult Blood - Negative Bedside Urine pH 6.0 Bedside Urine Protein - Negative Bedside Urine Urobilinogen - Negative Bedside Urine Nitrite - Negative Bedside Urine Leukocytes - Negative Esterase Discharge Plan Departure Patient Disposition: Home Clinical Impression: Dizziness Discharge Date/Time: 12/01/18 19:55 Interventions: ED Discharge Assessment Last Done: 12/01/18 19:56 Instructions: DI for Dizziness-Nonvertigo Activity Restrictions/Additional Instructions: Your workup came back normal today. Please follow up with primary care provider soon as possible. Please come back to emergency department for any acute concerns such as chest pain, shortness of breath or concern of stroke or TIA. Prescriptions: No Action clobetasol 1 applic topical DIRECTED RF: 0 Biotics See Rx Instructions .ROUTE .COMPLEX RF: 0 Referrals: Lyssa Bejarano DO [Non-Staff] - <Alexandra More DO - Last Filed: 12/02/18 19:40> Cosign ED Attending Cosignature Attestation: I was immediately available in the department for consultation, case was discussed with patient's history of remove fistula embolization, elected to do CTA which was otherwise unremarkable. This documentation has been reviewed and I agree with assessment and plan. Supervised by Alexandra More DO
[2018-12-01 19:56] VITALS: BP 107/61; PULSE 70; RESP 21; O2SAT 99
== END 2018-12-01 19:55 | disposition home or self-care (01) ==
PROVIDERS: Emergency Medicine; Emergency Provider Nurse Practitioner Family
DX: R42 Dizziness and giddiness (principal); R51 Headache; Z86.718 Personal history of other venous thrombosis and embolism
CPT/HCPCS: 36591; 70450; 70496; 70498; 71045; 80048; 81003; 82550; 82962; 84484; 85025; 85610; 85730; 93005; 93010; 96360; 96361; 99283; 99285; Q9967